=== PATIENT | male | born 1960 | race Hispanic/Latino ===

== ENCOUNTER 2019-04-03 06:05 | Observation (INO) | payer BC ==
[2019-04-01 10:46] VITALS: BP 112/61
[2019-04-01 10:49] LABS: BASOPHILS % (AUTO) 1.6 % (0.0-5.0); LYMPHOCYTES % (AUTO) 35.1 % (21.0-51.0); MEAN CORPUSCULAR HEMOGLOBIN 30.1 pg (27.0-33.0); MEAN CORPUSCULAR HGB CONC 33.1 g/dL (32.0-36.0); MEAN CORPUSCULAR VOLUME 90.9 fL (79-99); MONOCYTES % (AUTO) 8.2 % (3.0-13.0); NEUTROPHILS % (AUTO) 54.1 % (40.0-77.0); PLATELET COUNT (AUTO) 138 K/uL (130-400); RED CELL DISTRIBUTION WIDTH 16.3 % (11.0-15.5); WHITE BLOOD COUNT (AUTO) 5.2 K/uL (4.8-10.8)
[2019-04-01 10:56] LABS: CREATININE 0.9 mg/dL (0.5-1.5); POTASSIUM 4.1 mmol/L (3.5-5.1)
[2019-04-01 11:16] LABS: INR 1.03 (0.85-1.15); PROTHROMBIN TIME 10.8 SEC (9.6-11.6)
[~2019-04-03] VITALS: Ht 170.2 cm; Wt 93.3 kg
[2019-04-03] VITALS (11 sets, daily range): BP systolic 103–135; BP diastolic 46–88
[~2019-04-03 06:05] MED LIST: ASPI-1197 PO; ATOR20TA65 PO; FURO40TA5 PO; METO25TA6 PO; SACU1TAB PO; SODIUM CHLORIDE 0.9% 1000ML 1,000 ML IV SCH
[2019-04-03] MEDS ORDERED: ASPI-1181 PO (06:32)
--- NOTE | 2019-04-03 07:25 | NUR ---
PROCEDURE PT TAKEN TO POLICE SERVICE TECHNICIAN FOR CRTD VIA BED PT AWAKE AND ALERT IN BED, NO DISTRESS NOTED. SPOUSE AT BEDSIDE.
[2019-04-03] MEDS ORDERED: MEPERIDINE-PF 25 MG/ML SYG ONE ×3 (07:29→08:50)
[2019-04-03] MEDS ORDERED: CEFAZOLIN SODIUM 1 GM VIAL ONE (07:29)
[2019-04-03] MEDS ORDERED: LIDOCAINE HCL 1% MDV 50ML VIAL ONE (07:29)
[2019-04-03] MEDS ORDERED: MIDAZOLAM HCL 1 MG/ML 2ML VIAL ONE ×3 (07:29→08:50)
[2019-04-03] MEDS ORDERED: IOHEXOL-350 50ML VIAL IV ONE ×2 (07:29→08:47)
[2019-04-03] MEDS ORDERED: BUPIVACAINE/PF 0.25% 30ML VIAL IJ ONE (07:30)
[2019-04-03] MEDS ORDERED: ACETAMINOPHEN EXTRA STRENGTH 500 MG TABLET PO PRN (10:15)
--- NOTE | 2019-04-03 10:45 | NUR ---
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 LT UPPER CHEST DSG DRY & INTACT. NO BLEEDING, NO HEMATOMA NOTED. SLING TO LT ARM. ARM PRECAUTIONS REVIEWED @ THIS TIME. A/O X 3. NO SOB. NO DISTRESS NOTED. DENIES CHEST PAIN OR DISCOMFORT. DENIES INCISIONAL PAIN. TELE: PACED 70s. DENIES N/V. INFORMED TO MAINTAIN BEDREST X 4 HRS. ORIENTED TO RM. FAMILY @ BEDSIDE. INSTRUCTED TO CALL FOR ASSISTANCE. CALL ERIC W/IN REACH.
[2019-04-03] MEDS: ACETAMINOPHEN-CODEINE 300/30MG TAB PO PRN (11:59)
[2019-04-03] MEDS: CEFAZOLIN SODIUM 1 GM VIAL IVP SCH (11:59)
--- NOTE | 2019-04-03 14:00 | NUR ---
STATUS BEDREST COMPLETE. LT UPPER CHEST DSG DRY & INTACT. NO BLEEDING, NO HEMATOMA NOTED. ARM PRECAUTIONS REINFORCED. PT & FAMILY INFORMED PT MAY GET OOB. INSTRUCTED TO CALL FOR ASSISTANCE. CALL ERIC W/IN REACH.
[2019-04-03] MEDS: **HM**(Sacubitril/Valsartan (Entresto 24 mg-26 mg Tablet PO SCH (20:25)
[2019-04-03] MEDS: METOPROLOL TARTRATE 25 MG TAB PO SCH (20:25)
[2019-04-03] MEDS ORDERED: ATORVASTATIN CALCIUM 20 MG TABLET PO SCH (21:00)
[2019-04-04] VITALS: BP 101/66
[2019-04-04 04:00] VITALS: BP 101/66
[2019-04-04] MEDS: CEFAZOLIN SODIUM 1 GM VIAL IVP SCH (06:00)
[2019-04-04] MEDS: **HM**(Sacubitril/Valsartan (Entresto 24 mg-26 mg Tablet PO SCH (08:13)
[2019-04-04] MEDS: ACETAMINOPHEN-CODEINE 300/30MG TAB PO PRN (08:25)
--- NOTE | 2019-04-04 08:30 | NUR ---
AM ASSESSMENT PT LAYING IN BED, HOB ELEVATED 30, WATCHING TV. SPOUSE @ BEDSIDE. A/O X 3. NO SOB. NO DISTRESS NOTED. DENIES CHEST PAIN OR DISCOMFORT. DENIES INCISIONAL PAIN. TELE: PACED 70s. LT UPPER CHEST DSG DRY & INTACT. NO BLEEDING, NO DRAINAGE NOTED. SLING TO LT ARM. ARM PRECAUTIONS REINFORCED. DENIES N/V AND/OR DIARRHEA. UP W/ASSISTANCE. INSTRUCTED TO CALL FOR ASSISTANCE. CALL ERIC W/IN REACH.
[2019-04-04] MEDS: METOPROLOL TARTRATE 25 MG TAB PO SCH (08:31)
[2019-04-04] MEDS ORDERED: ASPIRIN 81 MG EC TAB PO SCH (09:00)
[2019-04-04] MEDS ORDERED: FUROSEMIDE 20 MG TABLET PO SCH (09:00)
[2019-04-04 11:32] VITALS: BP 100/67
--- NOTE | 2019-04-04 12:00 | NUR ---
DISCHARGE VERBAL & WRITTEN DISCHARGE INSTRUCTIONS REVIEWED & GIVEN TO PT & SPOUSE. QUESTIONS ENCOURAGED & CLARIFIED. PROPER CARE & ACTIVITY AFTER BiV ICD INSERTION REVIEWED. ARM PRECAUTIONS REINFORCED. NEW PRESCRIBED MEDICATIONS REVIEWED. PRESCRIPTION GIVEN TO PT' SIGNED COPY PLACED IN CHART. PT TO CONTINUE HOME MEDICATIONS. LT UPPER DSG CHANGED @ THIS TIME. STERI STRIP INTACT. NO BLEEDING, NO HEMATOMA NOTED. TELE [facility] REMOVED. IV DISCONTINUED. PT & SPOUSE TO GATHER PERSONAL BELONGINGS. WILL NOTIFY STAFF WHEN READY TO BE TAKEN TO PRIVATE VEHICLE.
--- NOTE | 2019-04-04 12:20 | NUR ---
DISCHARGE PT TAKEN TO PRIVATE VEHICLE VIA WC BY Isabella MOREAU PCP, ACCOMPANIED BY SPOUSE. NO DISTRESS NOTED.
== END 2019-04-04 12:20 | disposition home or self-care (01) ==
LOC: DAH 06:05 → DAHIP 06:06 → 2AH 11:21
PROVIDERS: ADMIT Internal Medicine; ATTEND Internal Medicine
DX: I25.5 Ischemic cardiomyopathy (principal); I11.0 Hypertensive heart disease with heart failure; I34.0 Nonrheumatic mitral (valve) insufficiency; I50.42 Chronic combined systolic (congestive) and diastolic (congestive) heart failure; I44.7 Left bundle-branch block, unspecified; E78.2 Mixed hyperlipidemia; Z83.3 Family history of diabetes mellitus; Z79.899 Other long term (current) drug therapy
CPT/HCPCS: 33225; 33249; 36415; 71045; 80048; 85025; 85610; 85730; 93005; A4606 ×2; C1769 ×2; C1882; C1895 ×2; C1900; G0378 ×26; J0690; J2175 ×3; J2250 ×3; J3490 ×2; J7030; Q9967 ×2; 92960; 99156; 99157

== ENCOUNTER → 2019-07-24 | Outpatient (CLI) | payer BC ==
[~2019-07-24] VITALS: Ht 165.1 cm; Wt 97.5 kg
[~2019-07-24] MED LIST changes: +ASPI-1181 PO; -ASPI-1197 PO; +REGADENOSON 0.4 MG/5 ML PF SYG IVP SCH; -SODIUM CHLORIDE 0.9% 1000ML 1,000 ML IV SCH
== END | disposition home or self-care (01) ==
LOC: SHCH 08:08
PROVIDERS: ATTEND Internal Medicine Cardiovascular Disease
DX: R94.30 Abnormal result of cardiovascular function study, unspecified (principal); I11.0 Hypertensive heart disease with heart failure; I50.42 Chronic combined systolic (congestive) and diastolic (congestive) heart failure
CPT/HCPCS: 78481; A9512; J2785

== ENCOUNTER 2025-03-25 06:29 | Day surgery (SDC) | payer BC ==
[~2025-03-25] VITALS: Ht 165.1 cm; Wt 93.0 kg
[2025-03-25] VITALS (12 sets, daily range): BP systolic 109–151; BP diastolic 60–74; PULSE 59–68; RESP 14–18; TEMP 97.1–97.9
[~2025-03-25 06:29] MED LIST changes: -ASPI-1181 PO; +ASPI-1443 PO; -ATOR20TA65 PO; +DAPA10TA PO; +FINE20TA PO; +FLUO40CA49 PO; +FURO20TA4 PO; -FURO40TA5 PO; +METO-391 PO; -METO25TA6 PO; +MONT-39 PO; +OMEG100014 PO; -REGADENOSON 0.4 MG/5 ML PF SYG IVP SCH; +ROSUVASTATIN PO; -SACU1TAB PO; +SACU1TAB7 PO; +TAMS-55 PO
[2025-03-25] MEDS: 0.9%NACL 1000ML 1,000 ML IV ONE (07:17)
[2025-03-25] MEDS ORDERED: proPOFol 10 MG/ML 20ML VIAL IV ONE (09:13)
[2025-03-25] MEDS ORDERED: LIDOCAINE HCL 1% 20 ML VIAL ONE (09:14)
== END 2025-03-25 10:30 | disposition home or self-care (01) ==
LOC: SUH 06:29 → DAH 06:29 → SUH 10:30
PROVIDERS: ATTEND Internal Medicine
DX: Z12.11 Encounter for screening for malignant neoplasm of colon (principal); D12.3 Benign neoplasm of transverse colon; D12.2 Benign neoplasm of ascending colon; K57.30 Diverticulosis of large intestine without perforation or abscess without bleeding; I11.0 Hypertensive heart disease with heart failure; I50.9 Heart failure, unspecified; I34.0 Nonrheumatic mitral (valve) insufficiency; E78.5 Hyperlipidemia, unspecified; R73.03 Prediabetes; Z95.0 Presence of cardiac pacemaker; Z79.01 Long term (current) use of anticoagulants
CPT/HCPCS: 45380; 45385; 82948; J7030; J2704; A4620; A4215 ×2; A4223; A4222; A4221; A4663; A4606; J3490